=== PATIENT | male | born 1990 | race Caucasian/White ===

== ENCOUNTER 2020-08-02 11:09 | Inpatient (IN) | payer MEDICAID, SELFPAY ==
[~2020-08-02] VITALS: Ht 177.8 cm; Wt 70.4 kg
[2020-08-02] MEDS ORDERED: NS 1,000 ML IV ONE (11:30)
[2020-08-02 12:01] LABS: BASO # 0.1 10^3/uL (0.0-0.2); BASO % 1.8 % (0.0-1.0); HEMATOCRIT 45.3 % (42.0-52.0); HEMOGLOBIN 15.7 g/dl (13.5-17.5); LYMPH # 0.4 10^3/uL (1.5-5.0); LYMPH % 10.8 % (24.0-44.0); MEAN CORPUSCULAR HEMOGLOBIN 34.4 pg (27.0-33.0); MEAN CORPUSCULAR HGB CONC 34.7 g/dl (32.0-36.5); MEAN CORPUSCULAR VOLUME 99.3 fl (80.0-96.0); MONO # 0.7 10^3/uL (0.0-0.8); MONO % 18.7 % (0.0-5.0); NEUTROPHILS # 2.6 10^3/uL (1.5-8.5); NEUTROPHILS % 67.2 % (36.0-66.0); RED BLOOD COUNT 4.56 10^6/uL (4.30-6.10); WHITE BLOOD COUNT 3.9 10^3/uL (4.0-10.0)
--- NOTE | 2020-08-02 12:09 | REPVR ---
PROCEDURE INFORMATION: Exam: CT Head Without Contrast Exam date and time: 08/02/2020 11:40 AM Age: 29 years old Clinical indication: Injury or trauma; Fall; Initial encounter; Blunt trauma (contusions or hematomas); Additional info: Syncope TECHNIQUE: Imaging protocol: Computed tomography of the head without contrast. Radiation optimization: All CT scans at this facility use at least one of these dose optimization techniques: automated exposure control; mA and/or kV adjustment per patient size (includes targeted exams where dose is matched to clinical indication); or iterative reconstruction. COMPARISON: No relevant prior studies available. FINDINGS: Brain: There is no acute intracranial hemorrhage or mass effect. Mild diffuse volume loss is within the range of normal for patient age. There are small vessel ischemic changes within the periventricular and subcortical white matter, but the normal astorga/white matter delineation is maintained. Ventricles: Normal. No ventriculomegaly. Bones/joints: Unremarkable. No acute fracture. Sinuses: Visualized sinuses are unremarkable. No fluid levels. Mastoid air cells: Visualized mastoid air cells are well aerated. Soft tissues: Unremarkable. IMPRESSION: No acute hemorrhage or calvarial fracture. Electronically signed by: Rose Harmon On 08/02/2020 12:08:54 PM
--- NOTE | 2020-08-02 12:11 | REPVR ---
PROCEDURE INFORMATION: Exam: CT Cervical Spine Without Contrast Exam date and time: 08/02/2020 11:40 AM Age: 29 years old Clinical indication: Injury or trauma; Fall; Initial encounter; Blunt trauma; Additional info: Syncope TECHNIQUE: Imaging protocol: Computed tomography images of the cervical spine without contrast. Radiation optimization: All CT scans at this facility use at least one of these dose optimization techniques: automated exposure control; mA and/or kV adjustment per patient size (includes targeted exams where dose is matched to clinical indication); or iterative reconstruction. COMPARISON: No relevant prior studies available. FINDINGS: Vertebrae: No acute fracture. Normal alignment. Discs/Spinal canal/Neural foramina: No significant disc protrusion. No severe spinal canal stenosis. No significant neural foraminal narrowing. Soft tissues: Unremarkable. Lungs: Lung apices are normal. IMPRESSION: No acute findings. Electronically signed by: Rose Harmon On 08/02/2020 12:10:40 PM
[2020-08-02] MEDS ORDERED: LORazepam 2 MG/ML VIAL As Ordered ONE ×2 (12:27→14:11)
[2020-08-02] MEDS ORDERED: LORazepam 2 MG/ML VIAL IV STA ×4 (12:27→15:28)
--- NOTE | 2020-08-02 12:33 | REPVR ---
PROCEDURE INFORMATION: Exam: XR Chest, 1 View Exam date and time: 08/02/2020 12:23 PM Age: 29 years old Clinical indication: Other: Syncope; Additional info: Syncope/near-syncope TECHNIQUE: Imaging protocol: XR of the chest Views: 1 view. COMPARISON: No relevant prior studies available. FINDINGS: Lungs: Unremarkable. No consolidation. Pleural space: Unremarkable. No pleural effusion. No pneumothorax. Heart/Mediastinum: Unremarkable. No cardiomegaly. Bones/joints: Unremarkable. IMPRESSION: No acute findings. Electronically signed by: Rose Harmon On 08/02/2020 12:32:45 PM
[2020-08-02 12:34] LABS: PLATELET COUNT, AUTOMATED 90 10^3/uL (150-450)
[2020-08-02 13:00] LABS: BLOOD UREA NITROGEN 9 MG/DL (7-18); CALCIUM LEVEL 9.3 MG/DL (8.5-10.1); CARBON DIOXIDE LEVEL 27 MEQ/L (21-32); CHLORIDE LEVEL 98 MEQ/L (98-107); CK-MB VALUE MASS 3.2 NG/ML (<3.6); CPK CREATINE PHOSPHOKINASE 600 U/L (39-308); CREATININE FOR GFR 0.87 MG/DL (0.70-1.30); FREE T4 0.77 NG/DL (0.76-1.46); GLOMERULAR FILTRATION RATE > 60.0 (>60); GLUCOSE, FASTING 113 MG/DL (70-100); MAGNESIUM LEVEL 2.3 MG/DL (1.8-2.4); MB/CK RELATIVE INDEX 0.53 (< OR =4); POTASSIUM SERUM 3.8 MEQ/L (3.5-5.1); SODIUM LEVEL 134 MEQ/L (136-145); TROPONIN I < 0.02 NG/ML (< 0.10)
[2020-08-02 14:26] LABS: AMPHETAMINES LEVEL URINE NEGATIVE (NEGATIVE); BARBITURATES URINE NEGATIVE (NEGATIVE); BENZODIAZEPINES URINE NEGATIVE (NEGATIVE); CANNABINOIDS URINE NEGATIVE (NEGATIVE); COCAINE METABOLITE URINE NEGATIVE (NEGATIVE); METHADONE URINE NEGATIVE (NEGATIVE); OPIATES URINE NEGATIVE (NEGATIVE); PHENCYCLIDINE URINE NEGATIVE (NEGATIVE)
[2020-08-02] MEDS ORDERED: levETIRAcetam INJection 1,000 MG in D5W 100 ML IV ONE (14:45)
--- NOTE | 2020-08-02 17:20 | HPEPDOC ---
[facility] Medical History & Physical Date of Admission Aug 02, 2020 Date of Service: Aug 02, 2020 Attending Physician: BECK HOLT MD History and Physical CHIEF COMPLAINT: Witnessed seizure HISTORY OF PRESENT ILLNESS: 29 yo M with no significant past medical history who presented from his family's "camp" as they were packing up after spending a few days with his family and had a witnessed fall has a 2-3 minute episode of tonic clonic jerking, unresponsive staring and fell and hit is forehead when he went down. On recovering EMS had been called and he was alert but confused and he was brought into the ED. In the ED, he had more seizure activity and after recovery after Keppra and ativan, he reported a history of 18 beers per day and had not drank any alcohol for the few days he has been at the [place] with his family. Dr. Schilling was consulted by the ED and recommended Keppra 500 mg BID for 2-3 days. Workup included a CT head that showed no acute hemorrhage or calvarial fracture, CT C-spine with no acute fracture and normal alignment, CXR with no acute cardiopulmonary pathology, i le WBC was 3.9, hgb 15.7, platelets 90, na 134, K 3.8, Cr 0.87, normal TSH and free T4, CK 600. He is now being admitted to the PCU for alcohol withdrawal. PAST MEDICAL HISTORY: Alcohol use disorder PAST SURGICAL HISTORY: Leg and knee surgery SOCIAL HISTORY: >18 beers per day No smoking No illicit drugs FAMILY HISTORY: Non contributory ALLERGIES: Please see below. REVIEW OF SYSTEMS: Unable to complete the complete ROS due to high anxiety, inattention and restlessness However denied recent illness, a prior history of seizures, recent fever, chills, N, V, D, chest pain, palpitations. HOME MEDICATIONS: Please see below. PHYSICAL EXAMINATION: VITAL SIGNS: HDS, tachycardic GENERAL APPEARANCE: Anxious, restless, trying to take off EKG leads, asking for food, blood on forehead HEENT: swelling on forehead with 4 small abrasions with mild bleeding, EOMI, MMM CARDIOVASCULAR: Regular rhythm, tachycardic, no mrg LUNGS: CTAB, breathing comfortably on room air ABDOMEN: Normoactive sounds, NTND MUSCULOSKELETAL: moving all limbs spontaneously EXTREMITIES: WWP, no edema NEUROLOGICAL: AOx2 to self and place. Tremulous, restless, moving all 4 extremities with full 5/5 strength LABORATORY DATA: Reviewed above IMAGING: Reviewed above MICROBIOLOGY: Please see below. ASSESSMENT: 29 yo M with alcohol use disorder who presented with a withdrawal seizure in the setting of no alcohol consumption for a few days while spending time with family. PLAN: 1. Alcohol withdrawal seizure with ongoing alcohol withdrawal: -CIWA protocol, with 2mg IV ativan per CIWA protocol -IV thiamine 100mg BID -PO MVI and folate starting tomorrow AM -NPO for now given william N/V episodes in the ED and seizure activity. Will advance to a diet when symptoms improve -will give keppra 500 BID for [address] Lin's conversation with Dr. Schilling -IVF, NS @ 150cc/hr -Q4H neuro checks -seizure precautions -CMP tomorrow AM for liver profile -Telemetry Thrombocytopenia: 2/2 alcohol marrow suppressive effects -DVT ppx with JAZZMINE and SCDs DVT ppx: TEDs and SCDs Dispo: PCU Vital Signs Vital Signs Date Time Temp Pulse Resp B/P (MAP) Pulse Ox O2 Delivery O2 Flow Rate FiO2 08/02/20 11:21 18 08/02/20 11:12 97.9 75 132/85 97 Room Air Laboratory Data Labs 24H Laboratory Tests 2 08/02/20 11:22: Bedside Glucose (Misc Panel) 120H 08/02/20 11:38: Immature Granulocyte % (Auto) 0.5, Neutrophils (%) (Auto) 67.2H, Lymphocytes (%) (Auto) 10.8L, Monocytes (%) (Auto) 18.7H, Eosinophils (%) (Auto) 1.0, Basophils (%) (Auto) 1.8H, Neutrophils # (Auto) 2.6, Lymphocytes # (Auto) 0.4L, Monocytes # (Auto) 0.7, Eosinophils # (Auto) 0.0, Basophils # (Auto) 0.1, Nucleated Red Blood Cells % (auto) 0.0, Immature Platelet Fraction 5.0, Anion Gap 9, Glomerular Filtration Rate > 60.0, Calcium Level 9.3, Magnesium Level 2.3, Total Creatine Kinase 600H, Creatine Kinase MB 3.2, Creatine Kinase MB Relative Index 0.53, Troponin I < 0.02, Thyroid Stimulating Hormone (TSH) 3.030, Free Thyroxine 0.77, Ethyl Alcohol Level 0.020H 08/02/20 13:49: Urine Opiates Screen NEGATIVE, Urine Methadone Screen NEGATIVE, Urine Barbiturates Screen NEGATIVE, Urine Phencyclidine Screen NEGATIVE, Urine Amphetamines Screen NEGATIVE, Urine Benzodiazepines Screen NEGATIVE, Urine Cocaine Metabolite Screen NEGATIVE, Urine Cannabinoids Screen NEGATIVE CBC/BMP Laboratory Tests 08/02/20 11:38 Home Medications No Active Prescriptions or Reported Meds Allergies Coded Allergies: No Known Allergies (Unverified , 08/02/20) A-FIB/CHADSVASC A-FIB History Current/History of A-Fib/PAF?: No Current PO Anticoag Therapy: No Age/Risk Factor Scoring CHADSVASC: CHADSVASC Response (Comments) Value Age Risk Factor Age < 65 years old 0 Gender Risk Factor Male 0 Hx of CHF No 0 Hx of HTN No 0 Hx of Stroke/TIA/or VTE No 0 Hx of Diabetes No 0 Hx of Vascular Disease No 0 Total 0 Treatment Treatment ordered: NONE Reason Anticoagulant not given: Not indicated/[id number] BECK HOLT MD Aug 02, 2020 17:20
[2020-08-02 17:49] VITALS: BP 161/93
[2020-08-02] MEDS: LORazepam 2 MG/ML VIAL IV PRN (17:49)
[2020-08-02 17:51] VITALS: BP 161/93
[2020-08-02] MEDS: NS 1,000 ML IV SCH (18:22)
[2020-08-02] MEDS: FOLIC ACID 1 MG TAB PO SCH (18:22)
[2020-08-02] MEDS: MULTIVITAMINS/MINERALS THERAP 1 TAB PO SCH (18:22)
[2020-08-02 20:00] VITALS: BP_SYST 128; BP_DIAS 70; BP_DIAS 74
[2020-08-02] MEDS ORDERED: THIAMINE 200MG/2ML VIAL (J3411 PER 100MG) IV SCH (21:00)
[2020-08-03] VITALS (8 sets, daily range): BP systolic 119–144; BP diastolic 73–87
[2020-08-03] MEDS: LORazepam 2 MG/ML VIAL IV PRN (00:29)
[2020-08-03] MEDS: NS 1,000 ML IV SCH ×2 (00:59→05:31)
[2020-08-03 04:59] LABS: HEMATOCRIT 41.2 % (42.0-52.0); MEAN CORPUSCULAR HEMOGLOBIN 34.6 pg (27.0-33.0); MEAN CORPUSCULAR VOLUME 101.7 fl (80.0-96.0); RED BLOOD COUNT 4.05 10^6/uL (4.30-6.10); WHITE BLOOD COUNT 5.9 10^3/uL (4.0-10.0)
[2020-08-03 05:05] LABS: PLATELET COUNT, AUTOMATED 71 10^3/uL (150-450)
[2020-08-03 05:17] LABS: BLOOD UREA NITROGEN 10 MG/DL (7-18); CALCIUM LEVEL 8.3 MG/DL (8.5-10.1); CARBON DIOXIDE LEVEL 27 MEQ/L (21-32); CHLORIDE LEVEL 105 MEQ/L (98-107); CREATININE FOR GFR 0.79 MG/DL (0.70-1.30); GLOMERULAR FILTRATION RATE > 60.0 (>60); GLUCOSE, FASTING 75 MG/DL (70-100); MAGNESIUM LEVEL 2.4 MG/DL (1.8-2.4); POTASSIUM SERUM 3.4 MEQ/L (3.5-5.1); SODIUM LEVEL 135 MEQ/L (136-145)
[2020-08-03] MEDS ORDERED: levETIRAcetam INJection 500 MG in D5W MINI-BAG PLUS 100 ML IV SCH (06:00)
[2020-08-03] MEDS: FOLIC ACID 1 MG TAB PO SCH (09:00)
[2020-08-03] MEDS ORDERED: ENOXAPARIN 40MG/0.4ML SYRINGE (J1650 PER 10MG) SC SCH (09:00)
[2020-08-03] MEDS: THIAMINE 100 MG TAB PO SCH ×2 (09:00→20:46)
[2020-08-03] MEDS: MULTIVITAMINS/MINERALS THERAP 1 TAB PO SCH (09:00)
[2020-08-03] MEDS: LORazepam 2 MG TAB PO PRN ×2 (09:05→15:59)
[2020-08-03] MEDS ORDERED: SLF 3 ML SYR IV PRN (11:00)
--- NOTE | 2020-08-03 11:27 | IPNPDOC ---
Text Note Date of Service The patient was seen on 08/03/20. 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 restlessness has improved. LABORATORY DATA: Reviewed. WBC 5.9 Hgb 14 platelets 71 na 135 K 3.4 Cr 0.79 IMAGING: Reviewed above MICROBIOLOGY: Please see below. ASSESSMENT: 29 yo M with alcohol use disorder who presented with a withdrawal seizure in the setting of no alcohol consumption for a few days while spending time with family. PLAN: 1. Alcohol withdrawal seizure with ongoing alcohol withdrawal: -CIWA protocol, with 2mg PO ativan per CIWA protocol -PO thiamine -PO MVI and folate -Regular diet -Dc Keppra -Dc IVF, NS @ 150cc/hr -DC neuro checks -seizure precautions -DC Telemetry, making him very upset and restless and taking it off, while tele was stable overnight, so will dc Thrombocytopenia: 2/2 alcohol marrow suppressive effects -DVT ppx with JAZZMINE and SCDs DVT ppx: TEDs and SCDs Dispo: PCU VS,Fishbone, I+O VS, Fishbone, I+O Laboratory Tests 08/02/20 11:38 08/03/20 04:24 Vital Signs Date Time Temp Pulse Resp B/P (MAP) Pulse Ox O2 Delivery O2 Flow Rate FiO2 08/03/20 04:00 98.5 75 18 119/78 (92) 98 Room Air I&O- Last 24 Hours up to 6 AM 08/03/20 06:00 Intake Total 1100 ml Output Total 825 ml Balance 275 ml BECK HOLT MD Aug 03, 2020 08:02
[2020-08-03] MEDS ORDERED: POTASSIUM CHLORIDE 10 MEQ SR TABLET PO ONE (11:30)
[2020-08-03] MEDS: SLF 3 ML SYR IV SCH ×2 (12:15→20:47)
[2020-08-04 05:03] LABS: HEMATOCRIT 44.7 % (42.0-52.0); HEMOGLOBIN 15.1 g/dl (13.5-17.5); MEAN CORPUSCULAR HEMOGLOBIN 34.2 pg (27.0-33.0); MEAN CORPUSCULAR HGB CONC 33.8 g/dl (32.0-36.5); MEAN CORPUSCULAR VOLUME 101.4 fl (80.0-96.0); RED BLOOD COUNT 4.41 10^6/uL (4.30-6.10)
[2020-08-04 05:04] LABS: PLATELET COUNT, AUTOMATED 81 10^3/uL (150-450)
[2020-08-04] MEDS: SLF 3 ML SYR IV SCH (05:04)
[2020-08-04 05:19] LABS: BLOOD UREA NITROGEN 7 MG/DL (7-18); CALCIUM LEVEL 8.9 MG/DL (8.5-10.1); CARBON DIOXIDE LEVEL 28 MEQ/L (21-32); CHLORIDE LEVEL 104 MEQ/L (98-107); GLOMERULAR FILTRATION RATE > 60.0 (>60); GLUCOSE, FASTING 86 MG/DL (70-100); POTASSIUM SERUM 3.6 MEQ/L (3.5-5.1); SODIUM LEVEL 133 MEQ/L (136-145)
[2020-08-04 06:43] VITALS: BP 168/77
--- NOTE | 2020-08-04 08:56 | DS.PDOC ---
Discharge Summary General Date of Admission Aug 02, 2020 at 15:56 Date of Discharge 08/04/2020 Attending Physician: BECK HOLT MD Discharge Summary PROCEDURES PERFORMED DURING STAY: None ADMITTING DIAGNOSES: Alcohol Withdrawal Seizure. DISCHARGE DIAGNOSES: Alcohol withdrawal seizures Alcohol use disorder Nicotine dependence COMPLICATIONS/CHIEF COMPLAINT: Alcohol Withdrawal Seizure. HISTORY OF PRESENT ILLNESS: 29 yo M with no significant past medical history who presented from his family's "camp" as they were packing up after spending a few days with his family and had a witnessed fall has a 2-3 minute episode of tonic clonic jerking, unresponsive staring and fell and hit is forehead when he went down. On recovering EMS had been called and he was alert but confused and he was brought into the ED. HOSPITAL COURSE: In the ED, he had more seizure activity and after recovery after Keppra and ativan, he reported a history of 18 beers per day and had not drank much alcohol for the few days he has been at the camp with his family. Dr. Schilling was consulted by the ED and recommended Keppra 500 mg BID for 2-3 days. Workup included a CT head that showed no acute hemorrhage or calvarial fracture, CT C-spine with no acute fracture and normal alignment, CXR with no acute cardiopulmonary pathology, while WBC was 3.9, hgb 15.7, platelets 90, na 134, K 3.8, Cr 0.87, normal TSH and free T4, CK 600. He was admitted to the PCU for alcohol withdrawal and placed on CIWA with ativan, on day 3 of admission before he was fully treated for alcohol withdrawal and still mildly symptomatic, he signed out AMA. PAST MEDICAL HISTORY: Alcohol use disorder DISCHARGE MEDICATIONS: Please see below. ALLERGIES: Please see below. PHYSICAL EXAMINATION ON DISCHARGE: DID NOT GET TO EXAMINE HIM. HE SIGNED OUT AMA 6.45AM BEFORE I BEGAN WORK. LABORATORY DATA: Please see below. IMAGING: CT head that showed no acute hemorrhage or calvarial fracture CT C-spine: no acute fracture and normal alignment CXR: no acute cardiopulmonary pathology PROGNOSIS: Good if he refrains from alcohol abuse ACTIVITY: As tolerated DIET: Regular DISCHARGE PLAN: Home AMA DISPOSITION: 07 Against Medical Advice. DISCHARGE INSTRUCTIONS: 1. Refrain from alcohol abuse and see PCP for alcohol dependence treatment ITEMS TO FOLLOWUP ON ON OUTPATIENT: 1. Alcohol use disorder DISCHARGE CONDITION: Stable TIME SPENT ON DISCHARGE: minutes. Vital Signs/I&Os Vital Signs Date Time Temp Pulse Resp B/P (MAP) Pulse Ox O2 Delivery O2 Flow Rate FiO2 08/04/20 06:43 98.6 90 18 168/77 (107) 98 Room Air I&O- Last 24 Hours up to 6 AM 08/04/20 06:00 Intake Total 1080 ml Output Total 250 ml Balance 830 ml Laboratory Data Labs 24H Laboratory Tests 2 08/04/20 04:31: Nucleated Red Blood Cells % (auto) 0.0, Immature Platelet Fraction 5.9, Anion Gap 1L, Glomerular Filtration Rate > 60.0, Calcium Level 8.9 CBC/BMP Laboratory Tests 08/04/20 04:31 Discharge Medications No Active Prescriptions or Reported Meds Allergies Coded Allergies: No Known Allergies (Unverified , 08/02/20) BECK HOLT MD Aug 04, 2020 08:56
--- NOTE | 2020-08-06 15:49 | ECGEPIP ---
[facility] - ED Test Date: 2020-08-02 Pat Name: DEMI VILLAGRAN Department: Room: - Gender: Male Infection Preventionist: GIBSON : 1990 Requested By: TEN Contreras Order Number: [id number] Reading MD: Jojo Pineda Measurements Intervals [place] Rate: 67 P: 34 PA: 159 QRS: 13 QRSD: 108 T: 43 QT: 411 QTc: 436 Interpretive Statements SINUS RHYTHM NORMAL ECG SEE SCANNED DOWNTIME REPORT
== END 2020-08-04 06:47 | disposition left against medical advice (07) | DRG 53 ==
LOC: M ED 11:09 → M ED INP 15:56 → M PCU 17:40
PROVIDERS: ADMIT Internal Medicine; ATTEND Internal Medicine
DX: R56.9 Unspecified convulsions (principal); D69.59 Other secondary thrombocytopenia; F10.239 Alcohol dependence with withdrawal, unspecified; F17.200 Nicotine dependence, unspecified, uncomplicated